=== PATIENT | female | born 1995 | race Caucasian/White ===

== ENCOUNTER → 2017-06-14 | Outpatient (CLI) | payer BC | LOC: LAB 10:34 | DX: E66.9 Obesity, unspecified (principal); E28.2 Polycystic ovarian syndrome ==

== ENCOUNTER → 2018-10-17 | Outpatient (CLI) | payer BC | LOC: RAD 08:44 | DX: T18.8XXA Foreign body in other parts of alimentary tract, initial encounter (principal); M54.5 Low back pain ==

== ENCOUNTER 2018-11-29 09:00 | Outpatient (RCR) | payer BC | END 2018-11-29 09:30 | LOC: PT 09:00 | DX: M54.5 Low back pain (principal) ==